=== PATIENT | female | born 1985 | race Caucasian/White ===

== ENCOUNTER 2017-03-14 11:57 | Emergency (ER) | payer BC, OTHER ==
[2017-03-14 12:11] VITALS: BMI 29.2
[2017-03-14 12:52] LABS: BASO % 0.4 % (0.0-2.0); EOS # 0.2 K/uL (0.0-0.7); HEMATOCRIT 32.8 % (34.0-47.0); LYMPH # 1.6 K/uL (1.0-4.3); LYMPH % 17.4 % (20.0-40.0); MEAN CELL VOLUME 79.8 fl (81.0-99.0); MEAN CORPUSCULAR HEMOGLOBIN 26.7 pg (27.0-31.0); MEAN CORPUSCULAR HGB CONC 33.4 g/dL (33.0-37.0); MONO # 0.6 K/uL (0.0-0.8); MONO % 6.7 % (0.0-10.0); NEUT # 6.8 K/uL (1.8-7.0); NEUT % 73.5 % (50.0-75.0); RED CELL DISTRIBUTION WIDTH 15.6 % (11.5-14.5); WHITE BLOOD COUNT 9.2 K/uL (4.8-10.8)
[2017-03-14] MEDS ORDERED: Betamethasone Soluspan 30 mg/5mL Inj Susp IM ONE (13:00)
--- NOTE | 2017-03-14 13:54 | OBHP ---
Datetime: 03/14/2017 12:55 IP Adm Impression: , intrauterine IP Chief Complaint Other: beta shot IP Admit Plan: Observation/Evaluation; Discharge home Admit Comment, IP Provider: CC: "I am here for my steroid shot" HPI: at 35.5 wks IUP with cholestasis presents to [facility] for 1st betamethasone shot. Pt is seen by Dr. Rivas, who wanted to her get her steroid shot today. Per pt there has been no complications d uring this thus far. However on further inquiry, pt has a fall early in without a ny complications. Per pt last u/s was on 03/10/17 and baby was doing well. +FM, occasional contraction s, -VB and -LOF. Denies headache, dizziness, blurry vision, chest pain, dyspnea, n/v/d/c. Obhx: 1 SAB in 2016, 6 wks GynHx: no hx of STIs, last pap was earlier this year, normal. Sexually active- last week PMH: cholestasis during this Surghx: denies FHx: DM and HTN in mother and hx of thyroid, colon and breast cancer in family. Sochx: , denies smoking, ETOH and illicit drug use Allergies: NKDA Meds: Ursodiol, iron and PNV PE: Vitals: stable Gen: NAD, looks nervous Cardio: S1S2 no M/G/R Resp: vesicular breathing b/l Abdomen: gravid, NT, BS+ Ext: 1+ pitting edema b/l right>left, NT, normal ROM Neuro: AAOx3 FHM: 150 with moderate variability, no contractions Assessment/Plan: at 35.5 wks IUP with cholestasis presents to [facility] for 1st betamethasone shot . -continue monitor -Dr. Rivas gave verbal orders to the pts nurse Mirna CBC w/ diff, beta shot, NST -per pt, she will come back tomorrow for her next shot and possibly induction? -PTL precaution given Pt seen and discussed with attending Dr. Sergio Mcfadden PGY I OBH addendum: Patient seen and examined by me with Dr. Mcfadden. Her history is significant for intrahepa tic cholestasis of . Plan: per Dr. Rivas is for betamethasone injection #1 today #2 tomorrow followed by admission for induc tion and delivery. Patient reports good movement she denies contractions or spontaneous rupture of membranes. She is to return to hospital for betamethasone No. 2. Indications for betamethasone and induction discussed with patient. Pelvic Type - PN: Adequate Extremities - PN: Normal Abdomen - PN: Normal Back - PN: Not Done Breast - PN: Not Done Lungs - PN: Normal Heart - PN: Normal Thyroid - PN: Normal Neurologic - PN: Normal HEENT - PN: Normal General - PN: Normal FHR - Baseline A Provider: 150 EGA AdmitDate IP: 35.4 Vital Signs Provider: Reviewed IP Chief Complaint: Other NICHD Variability Prov Fetus A: Moderate 6-25bpm NICHD Accel Fetus A IP Provider: 15X15 FHR Category Provider Fetus A: Category I NICHD Decel Fetus A IP Provider: None Genitourinary Exam: Not Done DTRs - PN: Normal
[2017-03-14 19:21] VITALS: BP 106/72; PULSE 110
== END 2017-03-14 14:00 | disposition home or self-care (01) ==
LOC: H.EROB2 11:57 → H.L&D 12:21 → H.EROB2 14:00
DX: O26.613 Liver and biliary tract disorders in pregnancy, third trimester (principal); Z23 Encounter for immunization; Z3A.35 35 weeks gestation of pregnancy
CPT/HCPCS: 85025; 96372; 99281; J0702

== ENCOUNTER 2017-03-15 12:53 | Inpatient (IN) | payer BC, OTHER ==
[2017-03-15 13:08] VITALS: BMI 30.2
[2017-03-15] MEDS ORDERED: Betamethasone Soluspan 30 mg/5mL Inj Susp IM ONE (13:09)
[2017-03-15 13:44] LABS: HEMATOCRIT 34.2 % (34.0-47.0); MEAN CELL VOLUME 80.2 fl (81.0-99.0); MEAN CORPUSCULAR HEMOGLOBIN 26.4 pg (27.0-31.0); MEAN CORPUSCULAR HGB CONC 32.9 g/dL (33.0-37.0); RED CELL DISTRIBUTION WIDTH 15.6 % (11.5-14.5); WHITE BLOOD COUNT 13.7 K/uL (4.8-10.8)
[2017-03-15 14:00] LABS: GLUCOSE,RANDOM 98 mg/dL (65-105); TOTAL PROTEIN 6.8 G/DL (6.3-8.2)
[2017-03-15 14:01] LABS: ALB/GLOB RATIO 1.1 (1.0-2.1); ALKALINE PHOSPHATASE 135 U/L (38-126); ALT/SGPT 22 U/L (9-52); AST/SGOT 22 U/L (14-36); BILIRUBIN,TOTAL 0.3 mg/dl (0.2-1.3); BLOOD UREA NITROGEN 5 mg/dl (7-17); CALCIUM 9.2 mg/dL (8.4-10.2); CARBON DIOXIDE 21 mmol/L (22-30); CHLORIDE 106 mmol/L (98-107); GFR AFRICAN-AMERICAN > 60; POTASSIUM 3.6 MMOL/L (3.6-5.0); SODIUM 137 mmol/l (132-148)
[2017-03-15] MEDS ORDERED: Penicillin G 5 Million Unit Vial IVPB ONE (14:11)
--- NOTE | 2017-03-15 14:28 | OBHP ---
Datetime: 03/15/2017 13:10 IP Adm Impression: , intrauterine ; No Active Labor; Intact Membranes IP Admit Plan: Admit to unit; Initiate labor induction protocol IP Admit Plan Other: Steroid dosing/ induction for delivery Admit Comment, IP Provider: 31yo IUP at 35w5d present for repreat sterid dose and IOL. She was sent in by PMD for second dose (first yesterday). Today she feels itching. No CTX; no VB; +FM PNC: CP Dr Rivas - followed for cholestasis of preg/Hx elevated bile acids given meds for this - Urosoditol POBGYNH: spont Abx 1 PMH: denies PSH: denies Allergy Latex; pollen, cats A: IUP at 35w Hx Cholestasis of preg PLAN: Betamethasone 12mg one dose. Spoke to Dr Nahid Rivas..admit for IOL as per MFM...start with Cervidl and give PCN. The patient's qu esoitns were answered. Pelvic Type - PN: Adequate Extremities - PN: Normal Abdomen - PN: Normal Back - PN: Normal Breast - PN: Not Done Lungs - PN: Normal Heart - PN: Normal Thyroid - PN: Normal Neurologic - PN: Normal HEENT - PN: Normal General - PN: Normal Presentation-Admit: Vertex FHR - Baseline A Provider: 130 Membranes, Provider: Intact Comments, ACOG Physical Exam: ROS: General: no weakness; no fatigue HEENT: no CONDE; no visual dist CV: no palpitations; no no CP GI: no N/V no diarhea No epigastric pain; non radiating : no F/U/D MS: No joint pain Skin itching Pool Provider: Negative IP Hx Assessment: The History has been Reviewed and is Current EGA AdmitDate IP: 35.5 IP Chief Complaint: Other NICHD Variability Prov Fetus A: Moderate 6-25bpm NICHD Accel Fetus A IP Provider: 15X15 FHR Category Provider Fetus A: Category I NICHD Decel Fetus A IP Provider: None Dilatation, Provider: 0 Genitourinary Exam: Normal DTRs - PN: Normal
[2017-03-15] MEDS: Lactated Ringer's 1,000 ML IV SCH (14:38)
--- NOTE | 2017-03-15 14:40 | OBADHP ---
Datetime: 03/15/2017 13:10 IP Admit Plan Other: Steroid dosing/ induction for delivery Admit Comment, IP Provider: 31yo IUP at 35w5d present for repreat sterid dose and IOL. She was sent in by PMD for second dose (first yesterday). Today she feels itching. No CTX; no VB; +FM PNC: CP Dr Rivas - followed for cholestasis of preg/Hx elevated bile acids given meds for this - Urosoditol POBGYNH: spont Abx 1 PMH: denies PSH: denies Allergy Latex; pollen, cats A: IUP at 35w Hx Cholestasis of preg PLAN: Betamethasone 12mg one dose. Spoke to Dr Nahid Rivas..admit for IOL as per MFM...start with Cervidl and give PCN. The patient's qu esoitns were answered. Pelvic Type - PN: Adequate Extremities - PN: Normal Abdomen - PN: Normal Back - PN: Normal Breast - PN: Not Done Lungs - PN: Normal Heart - PN: Normal Thyroid - PN: Normal Neurologic - PN: Normal HEENT - PN: Normal General - PN: Normal Presentation-Admit: Vertex FHR - Baseline A Provider: 130 Membranes, Provider: Intact Comments, ACOG Physical Exam: ROS: General: no weakness; no fatigue HEENT: no CONDE; no visual dist CV: no palpitations; no no CP GI: no N/V no diarhea No epigastric pain; non radiating : no F/U/D MS: No joint pain Skin itching Pool Provider: Negative IP Hx Assessment: The History has been Reviewed and is Current IP Chief Complaint: Other NICHD Variability Prov Fetus A: Moderate 6-25bpm NICHD Accel Fetus A IP Provider: [id number] FHR Category Provider Fetus A: Category I NICHD Decel Fetus A IP Provider: None Dilatation, Provider: 0 Genitourinary Exam: Normal DTRs - PN: Normal EGA AdmitDate IP: 35.5 IP Adm Impression: , intrauterine ; No Active Labor; Intact Membranes IP Admit Plan: Admit to unit; Initiate labor induction protocol Datetime: 03/14/2017 12:55 IP Chief Complaint Other: beta shot Vital Signs Provider: Reviewed
[2017-03-16] MEDS ORDERED: Oxytocin 30 units/LR 500ML 30 U/500 ML BAG IV ONE (03:00)
[2017-03-16] MEDS ORDERED: ceFAZolin 2 GM in Sodium Chloride 0.9% 100 ML IVPB ONE (06:44)
[2017-03-16] MEDS: Lactated Ringer's 1,000 ML IV SCH ×2 (07:15→19:13)
--- NOTE | 2017-03-16 07:35 | OBPN ---
Datetime: 03/16/2017 07:31 IP Progress Impression: Arrest of dilatation/descent IP Informed Consent Obtain: Section Delivery IP Progress Plan: Continue present management Membranes, Provider: Intact Contraction Comments Provider: q 2-3 min FHR - Baseline A Provider: 125 Gestation - Est Wks by US: 35.6 Presentation-Admit: Vertex IP Progress Note Comment: pt seen and examined. denies lof, vb, +FM. pt reports severe itchign and a lso ctx pain increasing intensity and frquency. pt counelsd on continuing IOL vs PLTCS . R/b/a/i of each d/w patient . pt requesting PLTCS as no p rogress has been made. VSS EFM: Cat I TOPC: q 2-3 min A?P @ 35.6 wks GA failed IOL for severe intrahepatic cholestasis of for PLTCS -on [place] to [place] -locator specialist, ivf -antiiosc -abdominal prep -ochoa to gravity -scds -cosnet singed adn witnessed -or/anestheisa aware Vital Signs Provider: Reviewed; Within Normal Limits FHR Category Provider Fetus A: Category I NICHD Variability Prov Fetus A: Moderate 6-25bpm Dilatation, Provider: 0 Effacement, Provider: 0 Station, Provider: -3 NICHD Decel Fetus A IP Provider: None Datetime: 03/15/2017 13:10 Pool Provider: Negative NICHD Accel Fetus A IP Provider: [id number]
[2017-03-16] MEDS ORDERED: Oxycodone/Acetaminophen 5/325 mg Tab PO PRN (07:37)
[2017-03-16] MEDS ORDERED: Morphine 1 mg/ml preservative-free Inj(Duramorph) ONE (08:11)
[2017-03-16] MEDS ORDERED: Morphine 1 mg/ml preservative-free Inj(Duramorph) IT ONE (08:14)
--- NOTE | 2017-03-16 08:35 | OBDS ---
MATERNAL INFORMATION Provider Comments: plctxs faile diol live male apgars 9,9 weight 5lbs 14 ounces ebl 700 no complicaitons urine output 150cc LABOR SUMMARY EDC: 04/14/2017 00:00 No. Babies in Womb: 1 LABOR INFORMATION Cervical Ripening Agents: Cervidil Group B Beta Strep: Done, Result Unknown STAGES OF LABOR Stage 3 hrs: 0 Stage 3 min: 1 BABY A INFORMATION Infant Delivery Date/Time: 03/16/2017 07:59 Method of Delivery: Born in Route : No : N/A Forceps: N/A Shoulder Dystocia : No SHOULDER DYSTOCIA BABY A Delivery Date/Time: 03/16/2017 07:59 PRESENTATION/POSITION BABY A Presentation: Cephalic Cephalic Presentation: Vertex Breech Presentation: N/A PLACENTA INFORMATION BABY A Placenta Delivery Time : 03/16/2017 08:00 Placenta Method of Delivery: Spontaneous Placenta Status: Delivered SCORES BABY A Heart Rate 1 min: >100 bpm Resp Effort 1 min: Good Cry Reflex Irritability 1 min: Cough or Sneeze or Pulls Away Muscle Tone 1 min: Active Motion Color 1 min: Body Ashkum, Extremities Blue Resuscitation Effort 1 min: Tactile Stimulation SCORE 1 MIN: 9 Heart Rate 5 min: >100 bpm Resp Effort 5 min: Good Cry Reflex Irritability 5 min: Cough or Sneeze or Pulls Away Muscle Tone 5 min: Active Motion Color 5 min: Body Ashkum, Extremities Blue Resuscitation Effort 5 min: Tactile Stimulation SCORE 5 MIN: 9 INFORMATION BABY A Gestational Age at Delivery: 35.0 Gestational Status: Outcome : Liveborn Condition : Stable Sex: Male IDENTIFICATION/MEDS BABY A ID Band Number: [id number] WEIGHT/LENGTH BABY A Infant Birthweight (gms): 2705 Infant Weight (lb): 5 Weight (oz): 15 CORD INFORMATION BABY A No. Cord Vessels: 3 Nuchal Cord : N/A Cord pH Baby Arterial: 7.38 Cord Blood Taken: N/A Infant Suction: None ASSESSMENT BABY A Infant Complications: None Physical Findings at Delivery: Within Normal Limits Infant Respirations: Appears Normal Timber Sprinkler/ALS Called : No Care By: Jessica Holly Transferred To: [facility]
--- NOTE | 2017-03-16 08:36 | PCM.SURG1 ---
Surgeon's Initial Post Op Note - Surgeon's Notes Surgeon: Denae Rivas< Lead Radiation Therapist: Carter Samayoa MD Type of Anesthesia: Spinal Pre-Operative Diagnosis: Failed Indication of labor for severe intrahepatic cholestasis of Operative Findings: live male infnat 9,9 weight of 5lbs 14 ounce. pediatrican present at [facility]. normal uterus, tubel kameron dovaries. Dr Hardeep Samayoa was suricla retail loan originator assistant and present for entire case and essential in gaining etry, retraction, exopsoure, holidng bladder blade, [facility], fclsoing all logan . Post-Operative Diagnosis: same as above Operation Performed: primary low tranvesre cesearean section Specimen/Specimens Removed: placenta Estimated Blood Loss: EBL {In ML}: 700 Blood Products Given: N/A Drains Used: No Drains Post-Op Condition: Good Date of Surgery/Procedure: 03/16/17 Time of Surgery/Procedure: 08:00
[2017-03-16] MEDS: Simethicone 80 mg Chewtab PO SCH ×2 (11:44→22:00)
[2017-03-16] MEDS: ceFAZolin 1 GM in Sodium Chloride 0.9% 100 ML IVPB SCH (19:35)
[2017-03-17] MEDS: Lactated Ringer's 1,000 ML IV SCH (03:53)
[2017-03-17] MEDS: Simethicone 80 mg Chewtab PO SCH ×4 (04:00→23:44)
[2017-03-17 06:33] LABS: HEMATOCRIT 30.8 % (34.0-47.0); MEAN CELL VOLUME 80.9 fl (81.0-99.0); MEAN CORPUSCULAR HEMOGLOBIN 26.3 pg (27.0-31.0); MEAN CORPUSCULAR HGB CONC 32.5 g/dL (33.0-37.0); RED CELL DISTRIBUTION WIDTH 15.8 % (11.5-14.5); WHITE BLOOD COUNT 12.3 K/uL (4.8-10.8)
[2017-03-17 06:41] LABS: BLOOD UREA NITROGEN 9 mg/dl (7-17); CALCIUM 8.3 mg/dL (8.4-10.2); CARBON DIOXIDE 26 mmol/L (22-30); CHLORIDE 107 mmol/L (98-107); GFR AFRICAN-AMERICAN > 60; GLUCOSE,RANDOM 77 mg/dL (65-105); POTASSIUM 3.7 MMOL/L (3.6-5.0); SODIUM 137 mmol/l (132-148)
[2017-03-17] MEDS: ceFAZolin 1 GM in Sodium Chloride 0.9% 100 ML IVPB SCH (07:24)
[2017-03-17] MEDS ORDERED: Bisacodyl 5mg EC Tab PO PRN (09:00)
--- NOTE | 2017-03-17 23:13 | OBPPN ---
Datetime: 03/17/2017 23:11 PP Pain Prov: Within normal limits PP Nausea Prov: Denies PP Flatus Prov: Yes PP BM Prov: No PP Breasts Prov: Normal PP Heart Prov: Normal PP Lungs Prov: Normal PP Abdomen/Uterus Prov: Normal PP Lochia Prov: Normal PP Vulva/Perineum Prov: Normal PP CVA Tenderness Prov: Normal PP Extremities Prov: Normal PP C/S Incision Prov: Normal PP Impression Prov: Normal progression PP Plan Prov: Continue present management IP PP Procedures: None Vital Signs Provider PP: Reviewed; Within Normal Limits
[2017-03-18] MEDS: Simethicone 80 mg Chewtab PO SCH ×4 (04:20→22:24)
[2017-03-18] MEDS: Oxycodone/Acetaminophen 5/325 mg Tab PO PRN ×3 (05:59→22:32)
--- NOTE | 2017-03-18 08:24 | OP ---
PROCEDURE DATE: 03/16/2017 SURGEON: Dr. Denae Rivas. PASTRY WRAPPER: Carter Samayoa MD TYPE OF ANESTHESIA: Spinal. PREOPERATIVE DIAGNOSIS: Failed induction of labor for severe _intrahepatic cholestasis of____ , arrest of dilation POSTOPERATIVE DIAGNOSIS: Failed induction of labor for severe ___intrahepatic cholestasis__ . PROCEDURE: Primary low transverse section. OPERATIVE FINDINGS: Live male , 's 9 and 9. Weight of 5 pounds 14 ounces. Roll Forming Machine Set Up Mechanic present for delivery. Normal uterus, tubes, and ovaries bilaterally. Dr. Carter Samayoa was the surgical supervisor, present for entire case, essential in gaining entry, retraction, exposure, holding the bladder blade, helped in delivering the baby, closing all layers, and obtaining hemostasis. SPECIMEN REMOVED: Placenta. ESTIMATED BLOOD LOSS: 700 mL BLOOD PRODUCTS: None. COMPLICATIONS: None. DESCRIPTION OF PROCEDURE: The patient was taken to the operating room where she was given spinal anesthesia. Once found to be adequate, she was positioned on the operating table in the dorsal supine position. The patient was then prepped and draped in the usual sterile fashion. A time-out was performed, confirmed correct patient and correct procedure. The patient was given preoperative prophylactic antibiotics. A Pfannenstiel skin incision was made with the scalpel carried in line to the underlying fascia with the Bovie. The fascia was incised in midline and the incision was extended laterally with Bovie. The superior aspect of the fascial incision was grasped with Vic clamps and the underlying rectus muscles were dissected off bluntly. Attention was then turned to the inferior aspect. In a similar fashion, was grasped, elevated with Vic clamps and the underlying rectus muscles were dissected off bluntly. The rectus muscles were then bluntly in the midline. The peritoneum was identified and entered until there was a good visualization of the bladder. The lower end of the Loretto was then inserted peritoneum was incised in a transverse fashion. The bladder flap was created digitally. The Seun was then reinserted. The lower uterine segment was incised in a transverse fashion. The lower uterine segment incision was extended laterally bluntly. There was clear Amniotic fluid. The surgeon's hand entered the uterine cavity. The 's head was delivered atraumatically, followed by delivery of the shoulders, followed by delivery of the body. Both oral and nasal passages of the baby were bulb suctioned. The umbilical cord was clamped and cut. The baby was handed off to waiting printer slotter helper. Cord blood and cord gases were then sent x2. The placenta was then delivered manually. The uterus was exteriorized and cleared off all clots and debris. The uterine incision was repaired with 0 Vicryl in a running locked fashion. Secondly, the same procedure was used to repair the uterus in running imbricating manner. There was good hemostasis at the uterine incision site. There were normal tubes and ovaries. The uterus was then returned to the abdomen. Paracolic gutters were cleared off all clots and debris and there was good hemostasis on the incision site. The peritoneum was reapproximated and closed with 2-0 Chromic in a continuous fashion. The rectus was reapproximated and closed with 2-0 Chromic in an interrupted manner. The fascia was reapproximated and closed with 0 Vicryl in a running continuous fashion. The subcutaneous space was closed with 2-0 plain in an interrupted manner. The skin was reapproximated and closed with 4-0 Monocryl in a subcuticular fashion. At the end of the procedure, all needle, sponge and instrument counts were noted to be correct x2. The patient tolerated the procedure well and was transferred to recovery room in stable condition. Denae Rivas MD MARCELA
[2017-03-19] MEDS: Simethicone 80 mg Chewtab PO SCH ×4 (05:53→22:39)
--- NOTE | 2017-03-19 23:57 | OBPPN ---
Datetime: 03/19/2017 23:52 PP Pain Prov: Within normal limits PP Nausea Prov: Denies PP Flatus Prov: Yes PP BM Prov: Yes PP Breasts Prov: Normal PP Heart Prov: Normal PP Lungs Prov: Normal PP Abdomen/Uterus Prov: Normal PP Lochia Prov: Normal PP Vulva/Perineum Prov: Normal PP CVA Tenderness Prov: Normal PP Extremities Prov: Normal PP C/S Incision Prov: Normal PP Progress Prov: Normal PP Impression Prov: Normal progression PP Progress Note Prov: Delayed entry: pt seen and examiend 03/18/17 @ 10:45am pt seen and examined in nurseyr report pain over incsion. pt dneies any fever, chill, nasue, vomit ing cp, sob VSS PE: GEN NAD, AAO x 3 BREAST: non tendern, no engorged b/l CVS: rrr, +S1/S2 RESP Ctab/l ABD: soft, appropateily TT, no guardin, no reboudn tendnere no rigidity +BS INCISON C?D/I VE: miniimal lochia, non foul smelling EXT: no calf tendenres, negative roderick's sgin a/p s/p PLTCS POD #2 doing well --cont current managnet -pain managmet -encourage ambulation Vital Signs Provider PP: Reviewed; Within Normal Limits
--- NOTE | 2017-03-19 23:59 | OBPPN ---
Datetime: 03/19/2017 23:56 PP Pain Prov: Within normal limits PP Nausea Prov: Denies PP Flatus Prov: Yes PP BM Prov: Yes PP Breasts Prov: Normal PP Heart Prov: Normal PP Lungs Prov: Normal PP Abdomen/Uterus Prov: Normal PP Lochia Prov: Normal PP Vulva/Perineum Prov: Normal PP CVA Tenderness Prov: Normal PP Extremities Prov: Normal PP C/S Incision Prov: Normal PP Progress Prov: Normal PP Impression Prov: Normal progression PP Progress Note Prov: pt seen and examined reports vmiign x 2. non bloody, no biliuos, reports feeling better. pt dneies any fever, chill, nasue, vomiting cp, sob. pt reports pian better controlled. VSS PE: GEN NAD, AAO x 3 BREAST: non tendern, no engorged b/l CVS: rrr, +S1/S2 RESP Ctab/l ABD: soft, appropateily TT, no guardin, no reboudn tendnere no rigidity +BS INCISON C?D/I VE: miniimal lochia, non foul smelling EXT: no calf tendenres, negative roderick's sgin a/p s/p PLTCS POD #3 -zofrna prn, followee by po challenge --cont current managnet -pain managmet -encourage ambulation -possible d/c in PM or 03/20 Vital Signs Provider PP: Reviewed; Within Normal Limits
[2017-03-20] MEDS: Simethicone 80 mg Chewtab PO SCH ×2 (04:43→09:19)
[2017-03-20 22:19] VITALS: BP 114/53; PULSE 96; RESP 18; TEMP 98.6; O2SAT 99
--- NOTE | 2017-03-23 18:44 | OBPPN ---
Datetime: 03/20/2017 07:42 PP Pain Prov: Within normal limits PP Nausea Prov: Denies PP Flatus Prov: Yes PP Breasts Prov: Normal PP Heart Prov: Normal PP Lungs Prov: Normal PP Abdomen/Uterus Prov: Normal PP Lochia Prov: Normal PP Vulva/Perineum Prov: Normal PP CVA Tenderness Prov: Normal PP Extremities Prov: Normal PP Progress Note Prov: delayed entry pt reprots feelign better stable for d/c rto 1 week rpeicautbharat andrews Vital Signs Provider PP: Reviewed; Within Normal Limits
--- NOTE | 2017-03-23 18:44 | OBDCSUM ---
Datetime: 03/20/2017 11:50 Discharge Instructions, Provider: Routine instructions given Contraception discussed, Prov: Yes Discharge Comment, Provider: rinku barlow Discharge Diagnosis Prov Other: cholestasis of , delivery Contraception after Delivery: Not Planning to Use
== END 2017-03-20 17:33 | disposition home or self-care (01) | DRG 765 ==
LOC: H.EROB2 12:53 → H.EROB 12:55 → H.L&D 13:09 → H.EROB2 13:09 → H.OB/GYN 03-16 11:40
PROVIDERS: ADMIT Obstetrics & Gynecology; ATTEND Obstetrics & Gynecology
PROC: 10D00Z1 Extraction of Products of Conception, Low, Open Approach (ICD-10-PCS; principal; 2017-03-15)
PROC: 4A1HXCZ Monitoring of Products of Conception, Cardiac Rate, External Approach (ICD-10-PCS; 2017-03-15)
DX: O60.14X0 Preterm labor third trimester with preterm delivery third trimester, not applicable or unspecified (principal); K83.1 Obstruction of bile duct; O26.62 Liver and biliary tract disorders in childbirth; O61.8 Other failed induction of labor; O66.9 Obstructed labor, unspecified; Z37.0 Single live birth; Z3A.35 35 weeks gestation of pregnancy